=== PATIENT | female | born 1955 | race Caucasian/White ===

== ENCOUNTER → 2020-02-09 15:53 | Outpatient (CLI) | payer OTHER, SELFPAY ==
--- NOTE | ~2020-02-09 | XR_ITS ---
EXAMINATION: XR ankle LT min 3V DATE: 02/09/2020 16:10 INDICATION: Left ankle pain. TECHNIQUE: 4 views of left ankle were obtained. COMPARISON: None. FINDINGS: Bone alignment is normal. There are small fragments of heterotopic ossification distal to m edial and lateral malleoli. There is mild midfoot osteoarthritis. There are enthesophytes at the post erior and plantar aspects of calcaneal tuberosity. Ankle soft tissue swelling is noted. IMPRESSION: 1. Small fragments of heterotopic ossification distal to medial and lateral malleoli which may be acu te avulsion fractures or findings from old injuries. Reviewed, dictated and finalized at location B. IMPRESSION: 1. Small fragments of heterotopic ossification distal to medial and lateral mal leoli which may be acute avulsion fractures or findings from old injuries.
== END ==
PROVIDERS: PCP Internal Medicine; Visit Provider Internal Medicine
DX: M25.572 Pain in left ankle and joints of left foot (principal)
CPT/HCPCS: 73610

== ENCOUNTER → 2020-06-08 15:19 | Outpatient (CLI) | payer OTHER, SELFPAY ==
--- NOTE | ~2020-06-08 | US_ITS ---
EXAMINATION: US thyroid DATE: 06/08/2020 15:48 INDICATION: Nontoxic thyroid nodules. TECHNIQUE: Multiple ultrasound images of the thyroid were obtained. COMPARISON: Ultrasound 06/12/2019 FINDINGS: The right thyroid lobe measures 5.3 x 2.1 x 2.2 cm. The left thyroid lobe measures 6.4 x 2.4 x 2.7 c m. In the left thyroid lobe, there is a 3.4 cm solid, hypoechoic, vbtit-ebbh-swgy nodule with smooth margin without echogenic foci (TI-RADS TR4) that is unchanged from 08/16/2018 when biopsy yielded pat hology. In the left thyroid lobe, there is a 1.1 cm solid, hypoechoic, wseev-dbac-uagw nodule with sm ooth margin without echogenic foci (TR4), stable from 06/12/2019. In the right thyroid lobe, there is a 2.3 cm solid, hypoechoic, hsqjm-mybv-regs nodule with ill-defined margin and macrocalcifications ( TR4) that is stable from 08/16/2018 when biopsy demonstrated benign pathology. In the right thyroid lo be, there is a 9 mm solid, hypoechoic, fbbql-bqec-agpa nodule with lobulated margin without echogenic foci (TR4), stable from 06/12/2019. IMPRESSION: 1. Stable multinodular goiter. Reviewed, dictated and finalized at location B. HAUL CHAIN FEEDER
== END ==
PROVIDERS: PCP Internal Medicine; Visit Provider Otolaryngology
DX: E04.2 Nontoxic multinodular goiter (principal)
CPT/HCPCS: 76536

== ENCOUNTER → 2020-08-30 13:53 | Outpatient (CLI) | payer OTHER, SELFPAY ==
--- NOTE | ~2020-08-30 | MM_ITS ---
EXAMINATION: MM screening reynaldo BI w trey HISTORY: Screening TECHNIQUE: Craniocaudal and mediolateral oblique 3-D tomosynthesis images were obtained and synthetic 2-D images were generated. CAD analysis was submitted and interpreted. COMPARISON: No prior mammogram is available for comparison at this institution. BREAST PARENCHYMAL COMPOSITION: There are scattered areas of fibroglandular density. FINDINGS: There is no evidence of suspicious mass, calcification, or architectural distortion to sugg est malignancy in either breast. There has been no suspicious interval change. IMPRESSION: 1. No mammographic evidence of malignancy. 2. Recommend routine screening mammography in one year. BI-RADS Category 1: Negative Reviewed, dictated and finalized at location A. ROBE SPECIALIST
== END ==
PROVIDERS: PCP Internal Medicine; Visit Provider Obstetrics & Gynecology
DX: Z12.31 Encounter for screening mammogram for malignant neoplasm of breast (principal)
CPT/HCPCS: 77063; 77067

== ENCOUNTER 2020-09-06 05:38 | Emergency (ER) | payer OTHER, SELFPAY ==
--- NOTE | ~2020-09-06 | XR_ITS ---
EXAMINATION: XR wrist LT min 3V DATE: 09/06/2020 06:06 INDICATION: Left wrist pain TECHNIQUE: Posteroanterior, ulnar deviation, oblique, and lateral views of the left wrist were obtain ed. COMPARISON: None available FINDINGS: There is a transverse lucency in the mid scaphoid. No additional acute osseous abnormality is identified. Mild osteoarthritis is noted at the triscaphe and first carpometacarpal joints. There is dorsal soft tissue swelling of the wrist overlying the carpals. IMPRESSION: 1. Mid scaphoid fracture. Reviewed, dictated and finalized at location A. ENTATION SPECIALIST IMPRESSION: 1. Mid scaphoid fracture.
[2020-09-06 05:43] VITALS: BP 149/102; PULSE 82; RESP 19; TEMP 36.7; O2SAT 100
--- NOTE | 2020-09-06 06:11 | ED.UPPEXIN ---
HPI - Extremity Injury (Upper) General Chief Complaint: Extremity Injury, Upper Stated Complaint: fall, left wrist pain Time Seen by Provider: 09/06/20 05:42 History of Present Illness HPI narrative: Patient is a 64-year-old female who presents ER with left wrist pain. Patient was working her garden when she got her foot stuck on a shovel and fell backwards driving her hand and wrist into the ground. She has been icing and resting the rest but has had persistent pain and discomfort upon waking today. She is able to perform range of motion at the wrist but has pain over the dorsal radial aspect of the wrist. Related Data Allergies Allergy/AdvReac Type Severity Reaction Status Date / Time Penicillins Allergy Mild rash Verified 09/06/20 05:42 Review of Systems Musculoskeletal: Musculoskeletal: Reports arthralgias, Reports joint swelling and Denies muscle cramps Neurologic: Denies focal weakness and Denies numbness PMFSH Past Medical History Medical History (Updated 09/06/20 @ 06:25 by Wilbert Saab MD) Benign paroxysmal positional vertigo of right ear Other and unspecified hyperlipidemia Paroxysmal atrial fibrillation Surgical History Surgical History (Updated 09/06/20 @ 06:15 by Wilbert Saab MD) H/O partial thyroidectomy Family History Family History Mother Cerebrovascular accident Other Diabetes mellitus Family history of arthritis Social History Social History Smoking status: Never smoker Second hand tobacco smoke exposure: No Alcohol intake: current Drinks per week: 10 Substance use: never Substance use type: does not use Gender identity (if verbalized by the patient): Female Exam Narrative: Exam Narrative: GENERAL: Well-appearing, well-nourished, and in no acute distress. HEAD: Normocephalic, atraumatic. EXTREMITIES: Focused exam of the left wrist reveals swelling over the dorsal aspect of the wrist and the radius without anatomical snuffbox tenderness. Range of motion is preserved. Normal sensation. Normal radial pulses and cap refill. SKIN: Warm, dry, no rash. NEURO: Alert and oriented x3. PSYCH: Normal mood and affect. Course Vital Signs Vital signs: Vital Signs Temperature 98.0 F 09/06/20 05:43 Pulse Rate 82 09/06/20 05:43 Respiratory Rate 19 09/06/20 05:43 Blood Pressure 149/102 H 09/06/20 05:43 Pulse Oximetry 100 09/06/20 05:43 Temperature 98.0 F 09/06/20 05:43 Pulse Rate 82 09/06/20 05:43 Respiratory Rate 19 09/06/20 05:43 Blood Pressure 149/102 H 09/06/20 05:43 Pulse Oximetry 100 09/06/20 05:43 MDM - Extremity Injury (Upper) Imaging Data My impression: X-ray left wrist: No acute traumatic injury. Discharge Plan Discharge Clinical Impression: Left wrist sprain Patient Disposition: Home, Self-Care Condition: Stable Instructions: Wrist Sprain (ED) Additional Instructions: Return the ER if you have new injury, you have new numbness or tingling in your hand, or you have additional concerns. Purchase a cock-up wrist splint from [employer] or [employer] to help with immobilization and decrease your pain. Prescriptions: No Action lovastatin 20 mg tablet 20 mg PO DAILY Qty: 90 RF: 3 Follow-up/Referrals: Trey Prather MD [Primary Care Provider] - 1 Week
== END 2020-09-06 06:45 | disposition home or self-care (01) ==
PROVIDERS: Emergency Provider Emergency Medicine; PCP Internal Medicine
DX: S63.502A Unspecified sprain of left wrist, initial encounter (principal); I48.0 Paroxysmal atrial fibrillation; E78.5 Hyperlipidemia, unspecified; E89.0 Postprocedural hypothyroidism; W18.09XA Striking against other object with subsequent fall, initial encounter
CPT/HCPCS: 73110; 99283

== ENCOUNTER 2021-02-15 16:33 | Outpatient (CLI) | payer OTHER, SELFPAY ==
--- NOTE | ~2021-02-15 | US_ITS ---
US venous doppler [facility] DATE: 02/15/2021 17:06 INDICATION: Left leg pain TECHNIQUE: Real-time and color flow imaging, Doppler analysis COMPARISON: None FINDINGS: The greater saphenous vein is patent. There is spontaneous and phasic flow and normal augme ntation and color flow signal and normal compression of the veins of the left leg. IMPRESSION: No evidence of deep venous thrombosis of left leg Reviewed, dictated and finalized at Location A. Reviewed, dictated and finalized at location A.
== END 2021-02-15 16:34 | disposition home or self-care (01) ==
LOC: ANHIMG 16:38
PROVIDERS: PCP Internal Medicine; Visit Provider Internal Medicine
DX: M79.662 Pain in left lower leg (principal)
CPT/HCPCS: 93971

== ENCOUNTER → 2021-03-10 15:23 | Outpatient (CLI) | payer OTHER, SELFPAY ==
--- NOTE | ~2021-03-10 | XR_ITS ---
XR knee LT 3V 03/10/2021 16:18 Indication: Left knee pain Procedure: 3 views left knee Comparison: No prior studies for comparison. Findings: No acute fracture, subluxation or dislocation. No significant joint effusion. Mild osteoart hritis of the left knee. Impression: 1: Mild osteoarthritis of the left knee. Reviewed, dictated and finalized at location A. Impression: 1: Mild osteoarthritis of the left knee.
== END ==
PROVIDERS: PCP Internal Medicine; Visit Provider Internal Medicine
DX: M17.12 Unilateral primary osteoarthritis, left knee (principal)
CPT/HCPCS: 73562

== ENCOUNTER → 2021-07-09 09:00 | Outpatient (CLI) | payer OTHER, SELFPAY ==
--- NOTE | ~2021-07-09 | MR_ITS ---
EXAMINATION: MR knee LT wo con DATE: 07/09/2021 10:02 INDICATION: Left knee pain. TECHNIQUE: Magnetic resonance imaging (MRI) of the left knee was performed without intravenous contra st. Sequences included axial PD-weighted FS FSE, coronal PD-weighted FSE and PD-weighted FS FSE, sagi ttal PD-weighted FSE, and sagittal T2-weighted FS FSE. COMPARISON: Left knee radiographs 03/10/2021 FINDINGS: Medial compartment: There is a complex tear of posterior horn of medial meniscus. There is extensive partial thickness ca rtilage loss of femoral condyle. There is full-thickness cartilage loss of femoral condyle involving the central and posterior articular surface. There is partial-thickness cartilage loss of tibial cond yle, deep at the central articular surface. Osteophytes are noted. Lateral compartment: Lateral meniscus is normal. There is partial-thickness cartilage loss of tibial condyle, deep at the lateral and central articular surface. There is partial-thickness cartilage loss of femoral condyle, deep at the central and lateral articular surface. Osteophytes are noted. Patellofemoral compartment: There is partial-thickness cartilage loss of patella. There is full-thickness cartilage loss of lucero lar medial facet with mild subchondral edema-like marrow signal intensity. There is partial-thickness cartilage loss of trochlea, deep at the central and lateral trochlea with mild subchondral edema-lik e marrow signal intensity. Osteophytes are noted. Ligaments and tendons: The anterior and posterior cruciate ligaments are normal. There are changes of prior sprains of media l collateral ligament and fibular collateral ligament characterized by thickening and increased signa l intensity. There is mild patellar tendinopathy. Fluid: There is a small knee joint effusion. There is trace fluid in a Rendon's cyst. There is mild superfici al infrapatellar bursitis. IMPRESSION: 1. Severe chondrosis of medial and patellofemoral compartments and moderate chondrosis of lateral com partment. 2. Tear of medial meniscus. 3. Small knee joint effusion. Reviewed, dictated and finalized at location B. OMES SPECIALIST IMPRESSION: 1. Severe chondrosis of medial and patellofemoral compartments and moderate cho ndrosis of lateral compartment. 2. Tear of medial meniscus. 3. Small knee joint effusion.
== END ==
PROVIDERS: PCP Internal Medicine; Visit Provider Orthopaedic Surgery
DX: M25.462 Effusion, left knee (principal); S83.242A Other tear of medial meniscus, current injury, left knee, initial encounter; X58.XXXA Exposure to other specified factors, initial encounter
CPT/HCPCS: 73721

== ENCOUNTER 2021-08-29 01:32 | Day surgery (SDC) | payer OTHER, SELFPAY ==
[2021-08-23 12:14] VITALS: BMI 25.7
--- NOTE | 2021-08-23 12:55 | PC.NURSE ---
Report to the Outpatient Waiting Room, entrance under the green pavilion located off [facility], at time 1030 on date 08/29/21. OR Time: 1230. - You and your visitor will be asked a series of questions to screen for COVID 19 for your protection. - A mask is required within the hospital. One visitor will be allowed to accompany the patient into the hospital. Patients visitor will be instructed to remain with patient at all times or leave the building. We will allow the visitor to come back to the postoperative area when patient is ready. Preoperative COVID Testing Requirements: No COVID Test needed if: (proof is required; if not received patient will have Rapid Test prior to entry) - Patient has received COVID Vaccine at least 14 days prior to procedure date or - Patient has positive COVID test result within last 90 days of surgery date. COVID Test needed if above criteria is not met Patients may have clear liquids (water, carbonated beverages, clear teas, apple juice) until 3 hours prior to surgery with a maximum of 20 ounces. - No food from midnight until time of surgery - Infants may have breast milk until 4 hours before surgery, formula 6 hours prior to surgery. - Children will be allowed to drink immediately following surgery. If applicable, please bring a bottle or sippy cup to assist with drinking. Juice, water, soda, and popsicles are readily available. For infants on formula, please bring formula the day of surgery. Pacifiers are allowed. Take the following medications with a SIP of water the morning of surgery: NONE Medications to discontinue per physician: VITAMINS/SUPPLEMENTS Date to take last dose: 08/25/21 Please no make-up, nail central african, hairspray, perfume, deodorant, or body powder the day of surgery. No jewelry (including any body piercings) or valuables the day of surgery, leave them at home. Please take a shower or bath the night before, or the morning of, surgery with an antibacterial soap. Wear comfortable, loose fitting clothing. - Jewelry must be removed prior to entering the operating room. Rings and piercings that are not removed may be cut off. - The hospital will not accept responsibility for valuables. - Please leave all valuables, including medications, at home the day of surgery. If you are going home after surgery, a licensed class c driver must drive you home. - NO public transportation without another adult. - We recommend that an adult stay with you for 24 hours following discharge. - We also recommend that you do not drive, make important decision, drink alcoholic beverages, or take any drugs that were not prescribed by your health care provider for at least 24 hours after your discharge time. Follow any additional instructions given to you from your surgeon. Telephone instructions given to MARQUITA VILCHIS and asked if any additional questions and then verbalized understanding. Patient advised to call surgeon office or pre surgery nurse liaison [phone] if any additional questions.
[2021-08-29] VITALS (8 sets, daily range): BP systolic 116–146; BP diastolic 66–86; PULSE 57–71; RESP 10–18; TEMP 36.3; O2SAT 98–100
--- NOTE | 2021-08-29 08:06 | P.PNAN_ITS ---
Anes - Initial Pre Proc Eval Procedure: Operation Date: 08/29/21 12:30 Proposed Procedures p Left Knee Arthroscopy with Medial Meniscectomy - Lito Bahena MD Date/Time: 08/29/21 08:06 Surgeon: Lito Bahena MD Pre Op Diagnosis: left knee medial meniscus tear Patient Data Age: 65 Gender: F Height: 1.74 m Weight: 78.02 kg Allergies Allergy/AdvReac Type Severity Reaction Status Date / Time Penicillins Allergy Mild rash Verified 08/29/21 10:46 Home Medications Medication Instructions Recorded Confirmed Type diltiazem HCl 120 mg 120 mg PO HS cap 03/30/21 08/29/21 History capsule,extended release 24 hr krill oil 350 mg-om-3 90 mg-dha 24 1 cap PO HS 03/30/21 08/29/21 History mg-epa 50 mg-phospholipids capsule aspirin 81 mg tablet,delayed 81 mg PO HS 06/28/21 08/29/21 History release calcium carbonate 500 mg calcium 500 mg PO HS 08/23/21 08/29/21 History (1,250 mg) chewable tablet lovastatin 20 mg PO HS 08/23/21 08/29/21 History multivitamin 1 tablet PO HS 08/23/21 08/29/21 History Patient hx anesthesia problems: none Family hx anesthesia problems: none Results Review: All pre-operative results and documents have been reviewed as part of the pre-operative evaluation. [facility] Past Medical History Medical History Benign paroxysmal positional vertigo of right ear Osteoarthritis of left knee Osteoarthritis of right hip Other and unspecified hyperlipidemia Paroxysmal atrial fibrillation Surgical History Surgical History H/O partial thyroidectomy Family History Family History Mother Cerebrovascular accident Other Diabetes mellitus Family history of arthritis Social History Social History Smoking packs per day: 2 Smoking cigarettes per day: 40.0 Years smoked: 10 Smoking pack-years: 20.00 Smoking status: Former smoker Tobacco type: cigarettes Second hand tobacco smoke exposure: No Smoking end date: 07/02/04 Additional smoking assessment comments: 2 PPD X 10 YRS, THEN 07/05 PPD Alcohol intake: current Drinks per week: 12 Alcohol use details: wine Substance use: never Substance use type: does not use Living arrangements: with family Gender identity (if verbalized by the patient): Female Spiritual care concerns: No Anes - Eval Final PreProcedure Day of Procedure 08/29/21 08:06 Patient weight: overweight Heart: regular rate and rhythm Lungs: clear to auscultation and normal air movement Airway: Mallampati scale class II Neurological: alert and oriented Last oral intake: >/= 8 hours ASA classification: III Emergent: no Anesthetic plan: proceed Anesthesia type and monitoring: general LMA and standard monitoring Results Review: All pre-operative results and documents have been reviewed as part of the pre-operative evaluation. Informed Consent: The patient's anesthetic plan and its attendant risks and benefits were discussed with the patient/family/POA. Questions were solicited and answers provided to the satisfaction of the patient/family/POA.
--- NOTE | 2021-08-29 09:29 | ECG_ITS ---
Measurements Intervals [place] Rate: 65 P: 30 DC: 127 QRS: -21 QRSD: 100 T: -13 QT: 393 QTc: 410 Interpretive Statements SINUS RHYTHM ATRIAL PREMATURE COMPLEX LOW QRS VOLTAGE IN PRECORDIAL LEADS INCOMPLETE RIGHT BUNDLE BRANCH BLOCK T WAVE ABNORMALITY IN INFERIOR LEADS- CONSIDER ISCHEMIA ABNORMAL ECG Electronically Signed On 08-29-2021 12:16:27 CONFERENCE ORGANIZER by Gerard Jones D.O.
--- NOTE | 2021-08-29 11:15 | WPDHPUPDATE1 ---
History and Physical Update Update Date/Time: 08/29/21 11:15 History and Physical has been reviewed, including an updated exam of the patient. She has moderate medial and lateral joint line irritability today as the knee is taken through range of motion and a mild effusion but no warmth or erythema. Risks, benefits, and alternatives have been discussed and questions answered. Patient agrees to proceed with procedure.
[2021-08-29] MEDS: LACTATED RINGERS 1,000 ML 30 ML IV CONT (11:19)
[2021-08-29] MEDS: ACETAMINOPHEN 500 MG TABLET 1000 MG PO (11:20)
[2021-08-29] MEDS: KETOROLAC 15 MG/ML VIAL (*BKC) IV PUSH (11:20)
[2021-08-29] MEDS: ceFAZolin 2 GM/D5W 50 ML 2 GM/50 ML BAG IVPB (11:31)
[2021-08-29] MEDS: TRANEXAMIC ACID 1,000 MG/10 ML AMPUL 1000 MG TOPICAL (12:20)
--- NOTE | 2021-08-29 12:51 | P.OP_ITS ---
Procedure Note - Detailed Date of Procedure 08/29/21 Pre-op Diagnosis left knee medial meniscus tear Post-op Diagnosis other (Left knee medial and lateral meniscal tears with extensive synovitis) Procedure Performed Left knee arthroscopy with partial medial and lateral meniscectomy and extensive synovectomy Surgeon Lito Bahena MD Anesthesia general Description of Procedure The patient was identified and proper site identified and she was taken to the operating room, transferred to the OR table placing her supine taking care to pad the torso and extremities. After general anesthetic induction and intubation, a nonsterile tourniquet was placed high on the left thigh. It was inflated midway through the procedure remaining up for 17 minutes and then released at the end of the procedure. The left lower extremity was positioned, prepped and draped in usual sterile fashion. 10 cc of 1% lidocaine was injected into the subcutaneous tissue in the area of the portals at start of the procedure, and an additional 10 at the end. The portals were established and the arthroscopy was carried out. Tricompartmentally there was grade 2 and three changes noted, some early grade 4 changes noted in the anterior compartment. There was tearing of the posterior horn of the medial meniscus in the midbody an d the anterior horn of the lateral meniscus into the midbody. These areas were debrided back to stable rim with basket forceps and shaver. There was also extensive synovitis noted throughout the knee. The extremity was exsanguinated tourniquet was inflated to 300 millimeters of mercury remaining up for about 17 minutes. Using a shaver and extensive synovectomy was carried out and then the ArthroCare Wand was used for hemostasis. The knee was flushed with a copious amount of arthroscopic fluid and equipment was removed. The knee was injected with 1 gram of tranexamic acid. Portals were closed with three O nylon suture and a sterile dressing was applied. The tourniquet was released. She tolerated the procedure well, was awakened, extubated and taken to recovery area in stable condition. There were no known intraoperative complications. Estimated blood loss was negligible; she received perioperative antibiotics. Estimated Blood Loss 10 Tourniquet Time 17 Drains No Packing No Pathology none sent Complications No immediate complications Condition stable Disposition PACU
[2021-08-29] MEDS: fentaNYL CITRATE INJ (*CRX) 100 MCG/2 ML VIAL 25 MCG IV PUSH ×3 (13:17→13:45)
[2021-08-29] MEDS: oxyCODONE HCL (*CRX) 5 MG TAB IR PO (14:29)
== END 2021-08-29 14:55 | disposition home or self-care (01) ==
PROVIDERS: PCP Internal Medicine; Visit Provider Orthopaedic Surgery
PROC: (CPT 29870; principal; 2021-08-29 12:30)
DX: M23.342 Other meniscus derangements, anterior horn of lateral meniscus, left knee (principal); M23.222 Derangement of posterior horn of medial meniscus due to old tear or injury, left knee; M65.862 Other synovitis and tenosynovitis, left lower leg; I45.10 Unspecified right bundle-branch block; I49.1 Atrial premature depolarization; Z79.82 Long term (current) use of aspirin; M19.90 Unspecified osteoarthritis, unspecified site; E78.5 Hyperlipidemia, unspecified; I48.0 Paroxysmal atrial fibrillation; Z87.891 Personal history of nicotine dependence; M25.462 Effusion, left knee; H81.11 Benign paroxysmal vertigo, right ear
CPT/HCPCS: 29880; 93005; A9270; J0690; J1885; J2001; J2250; J2704; J3010; J7120

== ENCOUNTER → 2021-09-17 09:15 | Outpatient (CLI) | payer OTHER, SELFPAY ==
--- NOTE | ~2021-09-17 | DEXA_ITS ---
Bone Density Report Name: MARQUITA VILCHIS Age: 65 Sex: Female Ethnicity: White Date of : 1955 Indication: postmenopausal; screening for osteoporosis; Referring Provider: Felipe, Rustam Heller Study: Bone densitometry was performed. Exam Date: September 17, 2021 Accession number: [id number] Bone Density: Region BMD T-score Z-score Classification AP Spine (L1-L4) 0.884 -1.5 0.3 Osteopenia Femoral Neck (Left) 0.773 -0.7 0.8 Normal Total Hip (Left) 0.836 -0.9 0.3 Normal Femoral Neck (Right) 0.861 0.1 1.6 Normal Total Hip (Right) 0.848 -0.8 0.4 Normal Total Hip Mean 0.842 -0.9 0.4 Normal World Health Organization criteria for BMD impression classify patients as: Normal (T-score at or above -1.0), Osteopenia (T-score between -1.0 and -2.5), or Osteoporosis (T-score at or below -2.5). 10-year Fracture Risk(1): Major Osteoporotic Fracture 7.5% Hip Fracture 0.4% Reported Risk Factors: [place] (), Neck BMD=0.773, BMI=26.7 (1) FRAX(R) Version 3.08. Fracture probability calculated for an untreated patient. Fracture probability may be lower if the patient has received treatment. Clinical Information Provided by Patient: Has used the following medications: Vitamin D, Calcium Patient maximum height was 68.5 Menopause Age: 53 Does not regularly consume dairy products Onset of menses at age 17 Number of children 2 Impression: The patient has low bone mass, based on the Total Spine T-score. The patient has an estimated ten-year risk of hip fracture of 0.4% and an estimated ten-year risk of major fracture of 7.5%, based on the WHO FRAX algorithm. Discussion: BONE DENSITY IS LOW AT ONE OR MORE SKELETAL SITES. This patient's lowest T-score is low at one or more skeletal sites. It meets the World Health Organization's (WHO) criteria for ?low bone mass? (T-score between -1.0 and -2.5). The patient's 10-year risk of fracture as calculated by FRAX is less than the threshold where pharmacological therapy is recommended by the National Osteoporosis Foundation (NOF). However, all treatment decisions require clinical judgment and consideration of individual patient factors, including patient preferences, comorbidities, previous drug use, risk factors not captured in the FRAX model (e.g., frailty, falls, vitamin D deficiency, increased bone turnover, interval significant decline in bone density) and possible under or overestimation of fracture risk by FRAX. The patient should follow a healthful lifestyle (good nutrition with adequate calcium and vitamin D, and appropriate weight-bearing exercise). Follow-Up: Consider repeating this study in 2 to 3 years to reassess this patient's status, or sooner if there is some new clinical indication. Reported by: LAURIE on 09/17/2021 9:43:00 AM.
--- NOTE | ~2021-09-17 | MM_ITS ---
EXAMINATION: MM screening reynaldo BI w trey HISTORY: Screening mammogram TECHNIQUE: Craniocaudal and mediolateral oblique 3-D tomosynthesis images were obtained and synthetic 2-D images were generated. CAD analysis was submitted and interpreted. COMPARISON: 08/30/2020, 04/03/2007 bilateral screening mammogram examinations BREAST PARENCHYMAL COMPOSITION: There are scattered areas of fibroglandular density. FINDINGS: Stable mild fibroglandular asymmetry. There is no evidence of suspicious mass, calcificatio n, or architectural distortion to suggest malignancy in either breast. There has been no suspicious i nterval change. IMPRESSION: 1. No mammographic evidence of malignancy. 2. Recommend routine screening mammography in one year. BI-RADS Category 2: Benign finding(s). Reviewed, dictated and finalized at location A.
== END ==
PROVIDERS: PCP Obstetrics & Gynecology; Visit Provider Obstetrics & Gynecology
DX: Z12.31 Encounter for screening mammogram for malignant neoplasm of breast (principal); Z78.0 Asymptomatic menopausal state; M85.88 Other specified disorders of bone density and structure, other site
CPT/HCPCS: 77063; 77067; 77080

== ENCOUNTER 2021-10-04 16:15 | Outpatient (RCR) | payer OTHER, SELFPAY ==
--- NOTE | 2021-08-31 08:18 | PTOPEVAL ---
Thank you for referring Fabby Faith to [facility].? The patient is scheduled to be seen for therapy? 2 x/week for 5 weeks. Please review, sign, date and return this plan of care MIKA. I agree with and certify that the following plan of care is medically necessary. Referring Physician Date Attending Provider: Rafy Soria APN Referring Provider: Diagnosis torn meniscus with s/p arthroscopic surgery left knee Onset 08/29/21 Additional Evaluation Detail She has 3 YESSICA without rails and 1 flight to basement no rails and 1 flight to 2nd level with rails. Subjective Information She did not get an AD, but has Query Text:As Reported By Patient/ been furniture walking. She Family reports limitations with walking, steps, ADL's, IADL's. She reports increased pain with attempting to bend left knee. She works in an office. She rides her exercise bike consistently and walks a lot. Pain Assessment Left Knee(s) Reported Pain Level 1 Pain Frequency Acute Lowest Pain Intensity 1 Greatest Pain Intensity 7 Pain Aggravating Factors Bending Lower Extremity Range of Motion Knee Range of Motion Left Knee Flexion Range of Motion - Active 62 Knee Extension Range of Motion - Active -22 Knee Range of Motion Limitations Edema,Muscle Weakness,Pain, Soft Tissue Restriction Lower Extremity Muscle Strength Testing General Lower Extremity Strength Gross Lower Extremity Strength right LE 5/5, except hip abd: 4-/5 Hip Strength Left Hip Flexion Strength 3+ Fair + Hip Extension Strength 4 Good Hip Abduction Strength 3+ Fair + Hip Strength Comments hip ext measured supine Knee Strength Left Knee Flexion Strength 3- Fair - Knee Extension Strength 3- Fair - Ankle Strength Left Ankle Dorsiflexion Strength 5 Normal Extremity Circumference Assessment Circumference Assessment Location Left Body Part Knee Site Descriptor ([place]) lateral knee joint line Circumference (cm) 43 Noninvolved Side Circumference (cm) 41 Circumference Comments superior patella: 43 cm starla Transfer Assessment Chair Transfer Assessment Chair Transfer Assistive Devices None Chair Transfer Destination Ambulatory Sit to Stand Chair Transfer Ability Independent Stand to Sit Chair Transfer Ability Independent Ability to Transfer In/Ou
--- NOTE | 2021-10-04 17:15 | PTOPEVAL ---
Physical Therapy Discharge Summary Thank you for referring Fabby Faith to [facility].? Fabby Acosta has been seen for 6 therapy visits to address LE impairments since her knee surgery. She demonstrates improved limitations with indep with her HEP. She has achieved her therapy goals at this time. See summary below for information of functional changes. Will DC skilled therapy services at this time. Please review, sign, date and return this discharge summary MIKA. I agree with and certify that the following plan of care is medically necessary. Referring Physician Date Attending Provider: Rafy Soria APN Diagnosis torn meniscus with s/p arthroscopic surgery left knee Onset 08/29/21 Subjective Information She is performing some thing Query Text:As Reported By Patient/ of her HEP daily,but not all Family of them. She does feel the leg is stronger. She reports improved knee swelling. She is riding her exercise bike daily. Pain Assessment Left Knee(s) Reported Pain Level 1 Pain Frequency Intermittent Lowest Pain Intensity 0 Greatest Pain Intensity 3 Lower Extremity Range of Motion Left Knee Flexion Range of Motion - Active 125 Knee Extension Range of Motion - Active 0 Lower Extremity Muscle Strength Testing Left Hip Flexion Strength 4+ Good + Hip Extension Strength 4+ Good + Hip Abduction Strength 3+ Fair + Left Knee Flexion Strength 4 Good Knee Extension Strength 5 Normal Special Tests-Lower Extremity Hip Special Tests Trendelenburg Sign Negative Left,Negative Right Hip Special Test Comments SLS: left: 30 sec, right: 30 sec Extremity Circumference Assessment Location Left Body Part Knee Site Descriptor ([place]) lateral knee joint line Circumference (cm) 42 Noninvolved Side Circumference (cm) 41 Circumference Comments superior patella: 43 cm starla inf patella: left: 39 cm, right: 38 cm Balance Assessment 5 Time Sit to Stand Time in Seconds 10 5 Time Sit to Stand Comments = LE WB, proper LE control and position Gait Assessment Gait Pattern No Deviations/Normal 2 Minute Walk Total Distance Walked (feet) 525 2 Minute Walk Gait Speed Score (feet/ 4.37 second) 2 Minute Walk Test Comments no pain changes Stair Climbing Assessment Stair Climbing Assistive Devices None Technique Alternating Steps Stair Climbing Direction Both Up and Down Stair Climbing Comment
== END 2021-10-05 11:04 | disposition home or self-care (01) ==
LOC: ANHPT 16:15
PROVIDERS: PCP Internal Medicine; Visit Provider Nurse Practitioner
DX: Z48.89 Encounter for other specified surgical aftercare (principal)
CPT/HCPCS: 97110; 97112; 97116; 97140; 97162

== ENCOUNTER → 2022-06-10 10:46 | Outpatient (CLI) | payer OTHER, SELFPAY ==
--- NOTE | ~2022-06-10 | US_ITS ---
EXAMINATION: US thyroid DATE: 06/10/2022 11:16 INDICATION: Nontoxic multinodular goiter. TECHNIQUE: Multiple ultrasound images of the thyroid were obtained. COMPARISON: Ultrasound 06/08/2020, 07/18/18 FINDINGS: The right thyroid lobe measures 5.6 x 1.8 x 2.0 cm. The left thyroid lobe measures 5.3 x 2.3 x 2.7 c m. In the right thyroid lobe, there is a 2.6 cm solid, hypoechoic, wider than tall nodule with ill-d efined margin with macrocalcification (TI-RADS TR4), stable from 08/16/18 when biopsy was benign. In t he right thyroid lobe, there is a 10 mm solid, hypoechoic, wider than tall nodule with irregular yanelis in without echogenic foci (TR4), stable from 06/08/20. In the left thyroid lobe, there is a 3.4 cm rubi id, hypoechoic, wider than tall nodule with smooth margin without echogenic foci (TR4), stable from when biopsy was benign. The thyroid demonstrates increased vascularity. IMPRESSION: 1. Stable multinodular goiter, likely not clinically significant. Reviewed, dictated and finalized at location A. CE MANAGER RECEPTIONIST
== END ==
PROVIDERS: PCP Otolaryngology; Visit Provider Otolaryngology
DX: E04.2 Nontoxic multinodular goiter (principal)
CPT/HCPCS: 76536

== ENCOUNTER → 2022-11-18 09:40 | Outpatient (CLI) | payer BC, SELFPAY ==
--- NOTE | ~2022-11-18 | MM_ITS ---
EXAMINATION: MM screening reynaldo BI w trey HISTORY: Screening mammogram, family history of breast cancer in her mother. TECHNIQUE: Craniocaudal and mediolateral oblique 3-D tomosynthesis images were obtained and synthetic 2-D images were generated. CAD analysis was submitted and interpreted. COMPARISON: 09/17/2021, 08/30/2020, 04/03/2007 BREAST PARENCHYMAL COMPOSITION: There are scattered areas of fibroglandular density. FINDINGS: No suspicious mass, calcification, or architectural distortion are identified in either azra ast to suggest malignancy. There has been no suspicious interval change. IMPRESSION: 1. No mammographic evidence of malignancy. 2. Recommend routine screening mammography in one year. BI-RADS Category 1: Negative Reviewed, dictated and finalized at location A.
== END ==
PROVIDERS: PCP Obstetrics & Gynecology; Visit Provider Obstetrics & Gynecology
DX: Z12.31 Encounter for screening mammogram for malignant neoplasm of breast (principal)
CPT/HCPCS: 77063; 77067

== ENCOUNTER 2023-06-07 16:27 | Emergency (ER) | payer BC, SELFPAY ==
--- NOTE | ~2023-06-07 | XR_ITS ---
[[id number] ] INDICATION: Right chest pain after injury TECHNIQUE: Frontal projection of the upper right ribs, frontal projection of the lower right ribs, ob lique projection of all the right ribs, frontal inspiratory chest x-ray for interpretation. FINDINGS: There is a nondisplaced right seventh rib fracture. No pneumothorax. No focal airspace cons olidation. No pleural effusion. Heart size normal. There are no soft tissue abnormality seen. . IMPRESSION: 1: Nondisplaced right seventh rib fracture. Reviewed, dictated and finalized at location L. ISITION PROFESSIONAL
--- NOTE | 2023-06-07 16:39 | ED.GENADULT ---
HPI - General Adult General Chief complaint: Chest Pain Stated complaint: INJURED RIB Source: patient Mode of arrival: ambulatory Limitations: no limitations History of Present Illness HPI narrative: 67 y/o female presented for c/o right rib pain for 5 days. States she hurt the rib after leaning over her car console, states she reached for something and hit the console hard with the rib and felt it compress. Since then she has had pain with certain movements and positions. She is able to tolerate deep breaths, but reports pain at the end of the deep inhale. Denies sob, wheezing, hemoptysis, dizziness or chest pain. Does not like to take anything for pain, states she took Tylenol last night because the pain was more severe, but it did not help. Related Data Home Medications Medication Instructions Recorded Confirmed apixaban 5 mg tablet (Eliquis) 5 mg PO BID 06/07/23 06/07/23 diltiazem HCl 240 mg 240 mg PO DAILY 06/07/23 06/07/23 capsule,extended release 24 hr Allergies Allergy/AdvReac Type Severity Reaction Status Date / Time Penicillins Allergy Mild rash Verified 06/07/23 17:11 Review of Systems Review of Systems: CONSTITUTIONAL: Denies body aches, fever, chills, or sweats. EYES: Denies visual changes, redness, or discharge. ENT: Denies rhinorrhea, congestion, sore throat, or otalgia. CARDIOVASCULAR: Denies chest pain, palpitations, or edema. RESPIRATORY: Denies cough or dyspnea. GASTROINTESTINAL: Denies abdominal pain, nausea, vomiting, or diarrhea. GENITOURINARY: Denies dysuria or hematuria. SKIN: Denies rash, itching, or wounds. MUSCULOSKELETAL:reports right rib pain Denies back pain, joint pain, or myalgia. NEUROLOGIC: Denies headache, numbness, tingling, or weakness. All systems reviewed & are unremarkable except as noted in HPI and below PMFSH Past Medical History Medical History Benign paroxysmal positional vertigo of right ear Osteoarthritis of left knee Osteoarthritis of right hip Other and unspecified hyperlipidemia Paroxysmal atrial fibrillation Surgical History Surgical History H/O partial thyroidectomy History of arthroscopy of left knee Meniscectomy and synovectomy August 29, 2021 Family History Family History Mother Cerebrovascular accident Other Diabetes mellitus Family history of arthritis Social History Social History Smoking packs per day: 2 Smoking cigarettes per day: 40.0 Years smoked: 10 Smoking pack-years: 20.00 Smoking status: Former smoker Tobacco type: cigarettes Second hand tobacco smoke exposure: No Smoking end date: 07/02/04 Additional smoking assessment comments: 2 PPD X 10 YRS, THEN 07/05 PPD Alcohol intake: current Drinks per week: 12 Alcohol use details: wine Substance use: never Substance use type: does not use Living arrangements: with family Occupation/Education: occupation Gender identity (if verbalized by the patient): Female Spiritual care concerns: No Comments At time of signature, I have reviewed and agree with nursing past medical, surgical, social and family history unless otherwise noted. Please see nursing chart for further information. There is no relevant family history pertinent to the presenting complaint Exam Narrative: GENERAL: Well-appearing, and in no acute distress. ENT: Mucous membranes pink and moist. NECK: Normal AROM. Supple. No lymphadenopathy. CHEST: No respiratory distress. Clear to auscultation. Speaks full sentences HEART: Regular rate and rhythm. No murmur appreciated. Normal peripheral pulses. ABDOMEN: Soft, nontender, nondistended, normal active bowel sounds. MUSCULOSKELETAL: Right anterior/lateral rib tenderness at rib 6-7 area; no bruising or apparent deformit
[2023-06-07 16:40] VITALS: BP 123/90; PULSE 74; RESP 16; TEMP 36.8; O2SAT 100
== END 2023-06-07 17:28 | disposition home or self-care (01) ==
PROVIDERS: Emergency Provider Nurse Practitioner Family
DX: S22.31XA Fracture of one rib, right side, initial encounter for closed fracture (principal); W22.8XXA Striking against or struck by other objects, initial encounter; I48.0 Paroxysmal atrial fibrillation; M17.12 Unilateral primary osteoarthritis, left knee; M16.11 Unilateral primary osteoarthritis, right hip; E78.5 Hyperlipidemia, unspecified
CPT/HCPCS: 71101; 99213; G0463

== ENCOUNTER 2023-10-29 12:08 | Outpatient (CLI) | payer MEDICARE, OTHER, SELFPAY ==
--- NOTE | ~2023-10-29 | DEXA_ITS ---
Bone Density Report Name: MARQUITA VILCHIS Age: 68 Sex: Female Ethnicity: White Date of : 1955 Indication: osteopenia; prior fracture; postmenopausal Referring Provider: Felipe, Rustam Heller Study: Bone densitometry was performed. Exam Date: October 29, 2023 Accession number: [id number] Bone Density: Region BMD T-score Z-score Classification AP Spine (L1-L4) 0.819 -2.1 -0.2 Osteopenia Femoral Neck (Left) 0.761 -0.8 0.8 Normal Total Hip (Left) 0.834 -0.9 0.4 Normal Femoral Neck (Right) 0.844 0.0 1.6 Normal Total Hip (Right) 0.853 -0.7 0.6 Normal Total Hip Mean 0.844 -0.8 0.5 Normal World Health Organization criteria for BMD impression classify patients as: Normal (T-score at or above -1.0), Osteopenia (T-score between -1.0 and -2.5), or Osteoporosis (T-score at or below -2.5). Previous Exams: Region Exam Age BMD T-score BMD Change BMD Change Date g/cm2 vs Baseline vs Previous AP Spine(L1-L4) 10/29/2023 68 0.819 -2.1 -0.065* -0.065* 09/17/2021 65 0.884 -1.5 Total Hip(Left) 10/29/2023 68 0.834 -0.9 -0.002 -0.002 09/17/2021 65 0.836 -0.9 Total Hip(Right) 10/29/2023 68 0.853 -0.7 0.005 0.005 09/17/2021 65 0.848 -0.8 *Denotes significance at 95% confidence level, LSC for AP Spine = 0.022 g/cm2, LSC for Total Hip = 0.027 g/cm2 Clinical Information Provided by Patient: Has had a low trauma fracture Patient maximum height was 68.5 Menopause Age: 53 Onset of menses at age 17 Number of children 2 Impression: The patient has low bone mass, based on the Total Spine T-score. The patient has risk factors, including: previous fracture. The BMD for the AP Spine(L1-L4) decreased, changing by -0.065 since the last DXA exam. Discussion: BONE DENSITY IS LOW AT ONE OR MORE SKELETAL SITES. This patient's lowest T-score is low at one or more skeletal sites. It meets the World Health Organization's (WHO) criteria for ?low bone mass? (T-score between -1.0 and -2.5). The patient's 10-year risk of fracture as calculated by FRAX is less than the threshold where pharmacological therapy is recommended by the National Osteoporosis Foundation (NOF). However, all treatment decisions require clinical judgment and consideration of individual patient factors, including patient preferences, comorbidities, previous drug use, risk factors not captured in the FRAX model (e.g., frailty, falls, vitamin D deficiency, increased bone turnover, interval significant decline in bone density) and possible under or overestimation of fracture risk by FRAX.
== END 2023-10-29 12:09 ==
PROVIDERS: PCP Family Medicine; Visit Provider Obstetrics & Gynecology
DX: Z78.0 Asymptomatic menopausal state (principal); M85.88 Other specified disorders of bone density and structure, other site
CPT/HCPCS: 77080

== ENCOUNTER 2023-11-20 10:30 | Outpatient (CLI) | payer MEDICARE, OTHER, SELFPAY ==
--- NOTE | ~2023-11-20 | MM_ITS ---
EXAMINATION: MM screening reynaldo BI w trey HISTORY: Screening TECHNIQUE: Craniocaudal and mediolateral oblique 3-D tomosynthesis images were obtained and synthetic 2-D images were generated. CAD analysis was submitted and interpreted. COMPARISON: Comparison to multiple prior studies sequentially, with oldest reviewed study dated 07/2020. BREAST PARENCHYMAL COMPOSITION: Not dense: There are scattered areas of fibroglandular density. FINDINGS: There is no evidence of suspicious mass, calcification, or architectural distortion to sugg est malignancy in either breast. There has been no suspicious interval change. IMPRESSION: 1. No mammographic evidence of malignancy. 2. Recommend routine screening mammography in one year. BI-RADS Category 1: Negative Reviewed, dictated and finalized at location A.
== END 2023-11-20 10:31 ==
LOC: MICIMG 10:31
PROVIDERS: PCP Family Medicine; Visit Provider Obstetrics & Gynecology
DX: Z12.31 Encounter for screening mammogram for malignant neoplasm of breast (principal)
CPT/HCPCS: 77063; 77067

== ENCOUNTER 2024-12-21 13:01 | Emergency (ER) | payer MEDICARE, OTHER, SELFPAY ==
--- NOTE | ~2024-12-21 | CT_ITS ---
Procedure: CT foot RT wo con Ordering provider: Leny Perez MD History: . c/f occult fx; point Tenderness ecchymosis . Comparison: None. Technique: Thin slice axial CT of the No IV contrast was given. Sagittal and coronal reformatted imag es were also obtained and reviewed. Radiation reduction technique utilized.The dose-length product wa s 449.82 mGy-cm. Findings: BONES: Small bony fragment seen near to the medial and lateral malleoli most likely chronic fracture versus nonunited apophysis.. 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 Osteoarthritic changes of the proximal and distal interphalangeal joints. SOFT TISSUES: Fat stranding on the dorsum of the foot which may indicate cellulitis. Hyperdense areas are also seen laterally which is suggestive of hematomas. IMPRESSION: No definite fractures. Fat stranding with edema in the dorsum of the foot. Hyperdense areas are also seen which is suggestiv e of hematomas seen laterally on the dorsum. Reviewed, dictated and finalized at location A. IMPRESSION: No definite fractures. Fat stranding with edema in the dorsum of the foot. Hyperdense areas are also s een which is suggestive of hematomas seen laterally on the dorsum.
[2024-12-21 13:05] VITALS: BP 132/81; PULSE 68; RESP 15; TEMP 36.7; O2SAT 100
--- NOTE | 2024-12-21 14:28 | ED_ITS ---
HPI - Extremity Injury (Lower) General Chief Complaint: Extremity Injury, Lower Stated Complaint: think broke the trop of my R foot Time Seen by Provider: 12/21/24 13:12 Source: patient Mode of arrival: ambulatory Limitations: no limitations History of Present Illness HPI Narrative: Patient presents with concern that she broke her foot. She and her are currently fostering her 2 1/2 year old grandson. Accidentally dropped one of his toys on her right foot. Has been icing it but still swollen. Has not taken any pain meds. Not on anticoagulation but is on 81mg aspirin. History of afib s/p ablation. Pain 1/10 at rest but worse when touching or bending it. No paresthesias. 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 Related Data Home Medications ?Medication ?Instructions ?Recorded ?Confirmed ?Last Taken ?Type diltiazem HCl 240 mg 240 mg PO DAILY 06/07/23 05/15/24 Unknown History capsule,extended release 24 hr Allergies Allergy/AdvReac Type Severity Reaction Status Date / Time Penicillins Allergy Mild rash Verified 12/21/24 13:07 [facility] Past Medical History Medical History Adult situational stress disorder At low risk for fall Acquired deformity of nail of finger (~10/2023) deformity of the nail bed right middle finger starting around Oct, 2023 after false nails Osteopenia after menopause DEXA scan 10/29/2023 with T-score -2.1 at the spine, -0.9 left hip and -0.8 right hip. Blood type A+ (07/23/23) Breast cancer screening by mammogram normal mammogram 11/18/2022. Normal 11/20/2023. Adenomatous colon polyp Serrated sessile adenoma at the hepatic flexure, 5 mm polyp on 07/23/2020 with recheck in 5 years. BMI 27.0-27.9,adult Overweight (BMI 25.0-29.9) Essential hypertension Mixed hyperlipidemia Cholesterol 221, triglycerides 88, LDL 80, LDL 126 on 05/06/2024. Elevated fasting glucose (07/23/23) glucose 103 on 07/23/2023. Fasting glucose 112 with hemoglobin A1c 5.8 and GFR 82 on 05/06/2024. Osteoarthritis of right hip Osteoarthritis of left knee Leg pain, left Left ankle sprain Sprain of left ankle Arthritis of right sternoclavicular joint Benign paroxysmal positional vertigo of right ear Body mass index (bmi) 39.0-39.9, adult Other and unspecified hyperlipidemia Obesity (BMI 30-39.9) Paroxysmal atrial fibrillation TSH 2.08 on 05/06/2024. Surgical History Surgical History S/P ablation of atrial fibrillation History of arthroscopy of left knee Meniscectomy and synovectomy August 29, 2021 H/O partial thyroidectomy Family History Family History Mother Cerebrovascular accident Breast cancer Uterine cancer Father Heart disease Other Diabetes mellitus Family history of arthritis Social History Social History Smoking packs per day: 2 Smoking cigarettes per day: 40.0 Years smoked: 10 Smoking pack-years: 20.00 Smoking status: Former smoker Tobacco type: cigarettes Second hand tobacco smoke exposure: No Smoking end date: 07/02/04 Additional smoking assessment comments: 2 PPD X 10 YRS, THEN 1/4 PPD Alcohol intake: current Drinks per week: 12 Alcohol use details: wine, whiskey, beer Substance use: never Substance use type: does not use Current Housing: Decline to Answer Concerned About Future Housing: Decline to Answer Difficulty Paying Gas/Electric Bills: Decline to Answer Difficulty Paying for Meds: Decline to Answer Currently Unemployed: Decline to Answer Education: Decline to Answer Difficulty w/ Childcare or Family Care: Decline to Answer Living arrangements: with family Additional living arrangements comments: and 2.5 yo grandson (whom fostering) Occupation/Education: occupation Gender identity (if verbalized by the patient): Female Spiritual care concerns: No Exam Narrative: GENERAL: Well-appearing, well-nourished, and in no acute distress. HEAD: Normocephalic, atraumatic. EYES: Non injected, non icteric ENT: Nares clear, no rhinorrhea or epistaxis. Gross auditory acuity intact. NECK: Supple. No meningismus. CHEST: Speaking in full sentences. No respiratory distress. HEART: Regular rate and rhythm. . ABDOMEN: Soft, nondistended. No rigidity or guarding. Not peritoneal EXTREMITIES: Normal range of motion - demonstrates ROM at R ankle and able to bend toes. Significant ecchymosis across dorsum of R mid foot, particularly lateral aspect with associated swelling. Tenderness to palpation at this area. Strong DP pulse in R foot. SKIN: Warm, dry. Ecchymotic but skin intact. NEURO: No focal deficits. Alert and oriented. Answering questions. Following commands. Normal speech without aphasia or dysarthria. PSYCH: Normal mood and affect. Course Vital Signs Vital signs: Vital Signs Temperature 98.0 F 12/21/24 13:05 Pulse Rate 68 12/21/24 13:05 Respiratory Rate 15 12/21/24 13:05 Blood Pressure 132/81 12/21/24 13:05 Pulse Oximetry 100 12/21/24 13:05 Oxygen Delivery Room Air 12/21/24 13:05 Temperature 98.0 F 12/21/24 13:05 Pulse Rate 63 12/21/24 14:45 Respiratory Rate 20 12/21/24 14:45 Blood Pressure 132/94 H 12/21/24 14:45 Pulse Oximetry 100 12/21/24 14:45 Oxygen Delivery Room Air 12/21/24 13:05 MDM - Extremity Injury (Lower) MDM Narrative Medical decision making narrative: Exceedingly pleasant 69yo female presents with concern for broken foot. Fostering 2.5 yo grandson and one of his toys was accidentally dropped on her foot. There has been pain and swelling. She has been icing it but no pain meds. In the emergency department they are afebrile with vital signs within normal limits. Plain film negative. Given degree of ecchymosis and tenderness to palpation, there is enough concern for occult fracture that will proceed with CT imaging, especially because I believe patient is limited in her ability to go home and trial conservative management and return if issues persist due to social issues and responsibilities at home caring for her who is in poor health and caring for a child, therefore limiting her time. CT also negative. Discussed the importance of rest, ice, compression and elevation. Encouraged pain control and discussed expected time course/progression of improvement. Otherwise stable for discharge. Differential Diagnosis Differential diagnosis: Likely other (ecchymosis, fracture/dislocation (considered Calderón, considered [place] Franc); considered occult fracture; bony contusion) Imaging Data Attestation: I personally reviewed and interpreted this imaging study as follows: My impression: No definitive fracture seen on my independent interpretation of Xray; No significant wideneing of spaces between metatarsals Radiologist's impression: Impressions Foot X-Ray 12/21/24 13:23 Impression: Unremarkable right foot radiographs. IMPRESSION: No definite fractures. Fat stranding with edema in the dorsum of the foot. Hyperdense areas are also seen which is suggestive of hematomas seen laterally on the dorsum. Discharge Plan Discharge Clinical Impression: Contusion of foot, right, Traumatic ecchymosis of right foot Patient Disposition: Home Condition: Stable Instructions: Antibiotic Form, Foot Contusion (ED), Ecchymosis (ED) Additional Instructions: No broken bones seen on the CT scan. As we discussed, the main stays treatment are R-I-C-E (rest, ice, compression, elevation). Follow-up with primary care physician as needed if not improving over the next 3-5 days. Return to the emergency department with any new, worsening, or unmanaged symptoms. Acetaminophen/Tylenol (maximum 4000 mg per day) is safe to take with NSAIDs (ibuprofen/Motrin) for pain relief. Patient Language: Azeri Prescriptions: New ibuprofen 600 mg tablet 600 mg PO TID PRN (Reason: pain) Qty: 30 0RF acetaminophen 500 mg capsule 1,000 mg PO Q6H PRN (Reason: pain) Qty: 30 0RF No Action diltiazem HCl 240 mg capsule,extended release 24hr 240 mg PO DAILY escitalopram oxalate [Lexapro] 10 mg tablet 10 mg PO DAILY Qty: 30 11RF lovastatin 10 mg tablet 10 mg PO DAILY Qty: 90 3RF Follow-up/Referrals: Samuel Murphy MD [Primary Care Provider] - Time of Disposition: 16:45
[2024-12-21 14:45] VITALS: BP 132/94; PULSE 63; RESP 20; O2SAT 100
== END 2024-12-21 17:06 | disposition home or self-care (01) ==
PROVIDERS: Emergency Provider Student in an Organized Health Care Education/Training Program; PCP Family Medicine
DX: S90.31XA Contusion of right foot, initial encounter (principal); W22.8XXA Striking against or struck by other objects, initial encounter; I10 Essential (primary) hypertension; E78.2 Mixed hyperlipidemia; I48.91 Unspecified atrial fibrillation; Z87.891 Personal history of nicotine dependence
CPT/HCPCS: 73630; 73700; 99283

== ENCOUNTER 2024-12-23 11:21 | Outpatient (CLI) | payer MEDICARE, OTHER, SELFPAY ==
--- NOTE | ~2024-12-23 | MM_ITS ---
EXAMINATION: MM screening reynaldo BI w trey HISTORY: Screening mammogram TECHNIQUE: Craniocaudal and mediolateral oblique 3-D tomosynthesis images were obtained and synthetic 2-D images were generated. CAD analysis was submitted and interpreted. COMPARISON: 11/20/2023, 11/18/2022, 09/17/2021 BREAST PARENCHYMAL COMPOSITION:Not Dense. There are scattered areas of fibroglandular density. FINDINGS: No suspicious mass, calcification, or architectural distortion are identified in either azra ast to suggest malignancy. There has been no suspicious interval change. IMPRESSION: No mammographic evidence of malignancy. Recommend routine screening mammography in one year. BI-RADS Category 1: Negative Reviewed, dictated and finalized at location .
== END 2024-12-23 11:22 | disposition home or self-care (01) ==
LOC: MICIMG 11:22
PROVIDERS: PCP Family Medicine; Visit Provider Family Medicine
DX: Z12.31 Encounter for screening mammogram for malignant neoplasm of breast (principal)
CPT/HCPCS: 77063; 77067

== ENCOUNTER 2025-04-22 09:51 | Outpatient (CLI) | payer MEDICARE, OTHER, SELFPAY ==
--- OUTSIDE RECORDS SUMMARY | 2025-03-25 08:07 | XMS_ITS | Clinical Summary ---
Author Organization [facility] Address [address] [place] [address] Care Team Providers Care Ophthalmic Tech Name Role Phone Unavailable Primary Care Provider Unavailabl e Allergies Active Allergy Reactions Criticality Noted Date Comments Penicillins Rash Low 09/23/2012 Medications aspirin (ECOTRIN EC) 81 mg Tablet, Delayed Release (E.C.) Take 81 mg by mouth daily. Active lovastatin (MEVACOR) 10 mg tablet TAKE 1 TABLET(10 MG) BY MOUTH DAILY 90 Tablet 2 06/18/2024 Active diltiaZEM (CARDIZEM CD) 240 mg Controlled Delivery 24 hour capsule Take 1 Capsule (240 mg) by mouth daily. 90 Capsule 2 07/24/2024 Active ergocalciferol (VITAMIN D2) 50,000 unit capsule Take 50,000 Units by mouth every 7 days. 06/19/2024 Active Active Problems Patient Care Coordination No te Formatting of this note migh t be different from the original. Rafy Tatum MD- [facility] ( [place]) Problem Noted Date Diagnosed Date Supraventricular tachycardia 08/18/2020 Elevated blood pressure read ing without diagnosis of hypertension 08/18/2020 Hx of adenomatous polyp of colon 08/01/2020 Palpitations 07/14/2020 Elevated blood pressure reading 07/14/2020 PAF (paroxysmal atrial fibrillation) 04/22/2014 Hyperlipidemia LDL goal <130 04/22/2014 Encounters Date Type Department Care Team Description 03/17/2025 External Device Data STL ABSTRACTION Provider, Abstract 03/10/2025 External Device Data STL ABSTRACTION Provider, Abstract 02/04/2025 External Device Data ST[facility] ABSTRACTION Provider, Abstract 02/03/2025 External Device Data STL ABSTRACTION Provider, Abstract 01/14/2025 External Device Data STL ABSTRACTION Provider, Abstract 01/14/2025 External Device Data STL ABSTRACTION Provider, Abstract 01/13/2025 External Device Data STL ABSTRACTION Provider, Abstract from Last 3 Months Family History Medical History Relation Name Comments Stroke Mother Colon Cancer Neg Hx Relation Name Status Comments Mother Social History Tobacco Use Types Packs/Day Years Used Date Smoking Tobacco: Former Smokeless Tobacco: Never Tobacco Cessation:Counseling Given: Not Answered Alcohol Use Standard Drinks/Week Comments Yes 7 (1 standard drink = 0.6 oz pur e alcohol) Feeling Safe Answer Date Recorded Are you in a relationship wi th someone who hurts you emotionally and/or physically? Unable to obtain 07/23/2023 Food Insecurity Answer Date Recorded Social/Environmental Concerns No concerns Transportation Needs Answer Date Record ed Social/Environmental Concerns No concerns Housing Stability Answer Date Recorded Social/Environmental Concerns No concerns Utility Needs Answer Date Recorded Social/Environmental Concerns No concerns Comments No Sex and Gender Information Value Date Recorded Sex Assigned at Female 04/30/2024 12:13 PM CDT Legal Sex Female 2:13 PM UPHOLSTERY ESTIMATOR Gender Identity Female 04/30/2024 12:13 PM CDT Sexual Orientation Straight 04/30/2024 12 :13 PM CDT Occupation Industry Job Start Date Job End Date Not on file Not on file Not on file Not on file Last Filed Vital Signs Vital Sign Reading Time Taken Comments Blood Pressure 128/80 09/02/2024 9:22 AM UPHOLSTERY ESTIMATOR Pulse 66 09/02/2024 9:22 AM UPHOLSTERY ESTIMATOR Temperature 36.2 C (97.2 F) 07/23/2023 5:33 PM UPHOLSTERY ESTIMATOR Respiratory Rate 16 07/23/2023 7:00 PM UPHOLSTERY ESTIMATOR Oxygen Saturation 99% 09/02/2024 9:22 AM UPHOLSTERY ESTIMATOR Inhaled Oxygen Concentration - - Weight 83.9 kg (185 lb) 09/02/2024 9:22 AM UPHOLSTERY ESTIMATOR Height 172.7 cm (5' 8) 09/02/2024 9:22 AM UPHOLSTERY ESTIMATOR Body Mass Index 28.13 09/02/2024 9:22 AM UPHOLSTERY ESTIMATOR Plan of Treatment Upcoming Encounters Date Type Department Care Team (Late st Contact Info) Description 05/13/2025 10:30 AM UPHOLSTERY ESTIMATOR Office Visit [facility] - [facility] [address] [place] [address] Rafy Tatum MD [address] [place] [address] 09/03/2025 9:30 AM UPHOLSTERY ESTIMATOR Office Visit [facility] AT [facility] [address] [address] [place] [address] Jesus Gomez DNP [address] [place] [address] Health Maintenance Due Date Last Done Comments Pre-Diabetes and Diabetes Screening 1955 DTAP/TDAP/TD VACCINES (1 - Tdap) 10/09/1975 FIT-DNA Q 3 years 2001 FIT/FOBT Q 1 year 2001 Flex Sig/CT Colonography Q 5 years 2001 PNEUMOCOCCAL VACCINE 50+ YEA RS (1 of 1 - PCV) 2006 ZOSTER VACCINE (1 of 2) 2006 INFLUENZA VACCINE (#1) 2025 COLORECTAL SCREENING 07/23/2025 07/23/2020, 07/23/2020, 01/11/2015, Additional history exists Colorectal Cancer Screening 07/23/2025 BREAST CANCER SCREENING 12/23/2025 12/24/19 25, 12/23/2024, 11/20/2023, Additional history exists OSTEOPOROSIS SCREENING 10/28/2028 , 10/29/2023, 10/29/2023 RSV VACCINE (60+ or ) (1 - 1-dose 75+ series) 10/09/2031 Medical Devices Implanted Type Area Double End Sewer Device Identifier Shelf Expiration Date Model / Serial / Lot Dev Vasc Closure Vascade 5fr [id number] - [id number] Implanted:Qty : 1 on 07/23/2023 at [facility] Closure Device Right: Groin [employer] 03/07/2025 [id number] -[id number] / / [id number] Dev Vns Vasc Clsr Vascade Mvp St [id number] - [id number] Implanted:Qty : 1 on 07/23/2023 at [facility] Closure Device Right: Groin [employer] 04/25/2025 800-612C- 10U / / [id number] Dev Vns Vasc Clsr Vascade Mvp St [id number] - [id number] Implanted:Qty : 1 on 07/23/2023 at [facility] Closure Device Right: Groin [employer] 04/12/2025 800-612C- 10U / / [id number] Dev Vns Vasc Clsr Vascade Mvp St [id number] - [id number] Implanted:Qty : 1 on 07/23/2023 at [facility] Closure Device Left: Groin [employer] 04/12/2025 800-612C- 10U / / [id number] Dev Vns Vasc Clsr Vascade Mvp St [id number] - [id number] Implanted:Qty : 1 on 07/23/2023 at [facility] Closure Device Left: Groin [employer] 04/12/2025 800-612C- 10U / / [id number] Procedures Procedure Name Priority Date/Time Associated Diagnosis Comments COLONOSCOPY REPORT 07/23/2020 11 :43 AM UPHOLSTERY ESTIMATOR from Last 3 Months or Most Recently Relevant to Health Maintenance Results * COLONOSCOPY REPORT (07/23/2020 11:43 AM UPHOLSTERY ESTIMATOR) Narrative Procedure Note River Herman MD - 07/23/2020 11:42 AM CST [facility] Endoscopy Patient Name: Marquita Faith Procedure Date: 07/23/2020 Date of : 1955 Admit Type: Outpatient Age: 64 Attending MD: River Herman MD Procedure: Colonoscopy Indications: Positive Cologuard test. Brother with a history of advanced colon polyp. Hyperplastic colon polyp 2012. Negative exam 2014. Providers: River Herman MD Referring MD: Trey Prather MD Medicines: Propofol per Anesthesia Procedure: Informed consent was obtained for the procedure, including moderate sedation after risks were discussed. Based on the pre-procedure assessment, including review of the patient's medical history, medications, allergies, and review of systems, the patient was deemed to be an appropriate candidate for sedation. A timeout was performed. Continuous ECG monitoring, pulse oximetry, blood pressure monitoring, and direct observation were performed. The Colonoscope was introduced through the anus and advanced to the terminal ileum, with identification of the appendiceal orifice and IC valve. The colonoscopy was performed without difficulty. The patient tolerated the procedure well. The quality of the bowel preparation was good. At completion of the exam, the scope was advanced to the cecum and all residual air was removed. Estimated Blood Loss: Estimated blood loss: none. Findings: A 5 mm polyp was found in the hepatic flexure. The polyp was sessile. The polyp was removed with a cold snare. Resection and retrieval were complete. A few small-mouthed diverticula were found in the sigmoid colon. Internal hemorrhoids were found during retroflexion. The hemorrhoids were small. Complications: No immediate complications. Impression: - One 5 mm polyp at the hepatic flexure, removed with a cold snare. Resected and retrieved. - Diverticulosis in the sigmoid colon. - Internal hemorrhoids. Recommendation: - Await pathology results. River Herman MD 07/23/2020 11:41:40 AM This report has been signed electronically. Number of Addenda: 0 Procedure Date: 07/23/2020 10:54:02 AM [id number] [address] River Herman MD GI PROCEDURE ORDERABLES Final Re sult from Last 3 Months or Most Recently Relevant to Health Maintenance Insurance MEDICARE PART A AND B [employer] [facility] Advance Directives For more information, please contact: [phone] * Full Code (Latest Code Status on File) Date Activated Date Inactivated Comments 07/23/2023 5:42 PM 07/23/2023 10:12 PM * Full Code Date Activated Date Inactivated Comments 07/23/2023 12:10 PM 07/23/2023 5:42 PM * Full Code Date Activated Date Inactivated Comments 07/23/2020 10:17 AM 07/23/2020 2:36 PM * Full Code Date Activated Date Inactivated Comments 01/11/2015 12:42 PM 01/11/2015 4:44 PM
--- OUTSIDE RECORDS SUMMARY | 2025-03-25 08:07 | XMS_ITS | Clinical Summary ---
Author Organization [facility] [employer] Address [facility] [place] [address] Care Team Providers Care Sub Arc Operator Name Role Phone Trey Prather MD Primary Care Provider Source Comments [facility] [employer],non-owned Affiliates and Associated Physician Practices is amultiple site organization consisting of ambulatory clinics and hospital sitesin [place], [place], [place] and [place]. This disclosure is being madepursuant to the Care Everywhere program and may not contain all information available regarding this patient. Last updated 18.[facility] [employer] Allergies Active Allergy Reactions Criticality Noted Date Comments Penicillins Rash Medium 09/23/2012 Medications * Be aware that medications may not be up to date on this document. Alwaysverify current medications with the patient. dilTIAZem coated beads 24hr (Cardizem CD) 240 MG capsule Take 1 (one) capsule by mouth once daily 03/26/2023 Active vitamin D, ergocalciferol, (Drisdol) 1.25 MG (03570 UT) capsule Take 1 (one) capsule by mouth every 7 days 13 capsule 06/19/2024 Active Active Problems Problem Noted Date Diagnosed Date Osteopenia of spine 07/02/2023 Family History Medical History Relation Name Comments Cancer - Breast Maternal Aunt over 50 Cancer - Breast Mother past 50 Cancer - Uterine Mother Cancer - Breast Paternal Grandmother unde r 50 Relation Name Status Comments Maternal Aunt Mother Paternal Grandmother Social History Tobacco Use Types Packs/Day Years Used Date Smoking Tobacco: Former Smokeless Tobacco: Never Tobacco Cessation:Counseling Given: Not Answered Alcohol Use Standard Drinks/Week Comments Yes 14 (1 standard drink = 0.6 oz pu re alcohol) PHQ-2 Answer Date Recorded Patient Health Questionnaire-2 Score 0 06/16/2024 Comments No Sex and Gender Information Value Date Recorded Sex Assigned at Not on file Legal Sex Female 6:14 AM ASSOCIATE BRAND MANAGER Gender Identity Not on file Sexual Orientation Not on file Last Filed Vital Signs Vital Sign Reading Time Taken Comments Blood Pressure 122/78 06/17/2024 10:18 AM ASSOCIATE BRAND MANAGER Pulse - - Temperature - - Respiratory Rate - - Oxygen Saturation - - Inhaled Oxygen Concentration - - Weight 83 kg (183 lb) 06/17/2024 10:18 AM ASSOCIATE BRAND MANAGER Height 173 cm (5' 8.11) 06/17/2024 10:18 AM ASSOCIATE BRAND MANAGER Body Mass Index 27.74 06/17/2024 10:18 AM ASSOCIATE BRAND MANAGER Plan of Treatment Health Maintenance Due Date Last Done Comments COLOGUARD (AGES 45-75) - COLON CA SCREENING 1955 COLON MONITORING 1955 COLONOSCOPY - COLON CA SCREENING 1956 CT COLONOGRAPHY - COLON CA SCREENING 1955 Colorectal Cancer Screening 1955 FIT - COLON CA SCREENING 1955 FLEX SIG - COLON CA SCREENING 1955 LIPID TESTING 1955 MEDICARE AWV 12 MONTHS 1955 HEPATITIS C SCREENING 10/04/1974 DTAP/TDAP/TD VACCINES (1 - Tdap) 10/09/1975 PNEUMOCOCCAL VACCINE 50+ (1 of 1 - PCV) 2006 ZOSTER VACCINE (1 of 2) 2006 SCREENING FOR DIABETES 04/05/2017 DEPRESSION SCREENING 07/02/2024 06/17/2024, 05/28/2023, 07/04/2021 COVID-19 VACCINE (3 - season) 2025 10/17/2020, 09/24/2020 INFLUENZA VACCINE (#1) 2025 , 05/13/2021, 05/18/2019 MAMMOGRAM 11/19/2025 11/20/2023, 10/31, 09/17/2021, Additional history exists Respiratory Syncytial Virus (RSV) Vaccine Pt: or over 60 yrs (1 - 1-dose 75+ series) 10/09/2031 BONE DENSITY TESTING Completed 10/29/2023 HEPATITIS B VACCINE Aged Out No longe r eligible based on patient's age to complete this topic HIB VACCINE Aged Out No longer eligi ble based on patient's age to complete this topic HPV VACCINE Aged Out No longer eligi ble based on patient's age to complete this topic MENINGOCOCCAL (Group B) VACCINE SHARED DECISION-MAKING Aged Out No longer eligible based on patient's age to complete this topic MENINGOCOCCAL GROUPS A/C/Y/W VACCINE Aged Out No longer eligible based on patient's age to complete this topic Procedures Procedure Name Priority Date/Time Associated Diagnosis Comments MAMMO BILAT SCREENING Routine 11/20/2023 Well woman exam DEXA BONE DENSITY AXIAL SKELETON Routine 10/29/19 24 Well woman exam from Last 3 Months or Most Recently Relevant to Health Maintenance Results * MAMMO BILAT SCREENING (11/20/2023) Anatomical Region Laterality Modality Breast Bilateral Mammography 11/20/2023 us Rustam Wang MD MAMMO ORDERABLES Final Resu lt * DEXA BONE DENSITY AXIAL SKELETON (10/29/2023) Anatomical Region Laterality Modality Other 10/29/2023 us Rustam Wang MD DEXA ORDERABLES Final Resul t from Last 3 Months or Most Recently Relevant to Health Maintenance Insurance [place]IC[place] [address] Care Teams Sub Arc Operator Relationship Specialty Start Date End Date Trey Prather MD [address] [place] [address] PCP - General Internal Medicine 04/05/17
--- NOTE | 2025-05-14 11:54 | P.SLEEP_ITS ---
Sleep Study Date of Study: 04/22/25 Ordering Provider: Milton Chavis MD Interpreting Physician: Alice Arreola MD Sleep Study Type: Polysomnogram Height: 1.75 m Weight: 81.193 kg Body Mass Index: 26.4 Neck Circumference (inches): 14 Mather: 1 Reason for Sleep Study Loud snoring reported to her by her ; her ENT reports mouth breathing, restless sleep, non restorative sleep, daytime fatigue and excessive movements of the extremities and body during sleep. Sleep History Fabby Faith is a 69-year-old woman who has a history of loud snoring as well as mouth breathing, restless sleep, non restorative sleep, daytime fatigue and excessive movements of the extremities per her ENT physician. She never awakens from sleep short of breath. She never wakes at night with heartburn, belching or coughing.??She snores loudly and occasionally loudly enough that others complain about it. She frequently has trouble sleeping when she has a cold. She never wakes up gasping for breath during the night. She ne isatu has breathing problems at night. She never sweats excessively at night. She occasionally notices her heart pounding or beating irregularly during the night. She neverfalls asleep during the day. She never falls asleep involuntarily, never falls asleep while driving. She never experiences loss of muscle tone with strong emotion. She never feels paralyzed on waking or falling asleep. She rar joan experiences vivid dreams upon waking or falling asleep. She never feels afraid of going to sleep. She rarely has nightmares. She frequently recalls her dreams. She rarely has thoughts racing through her mind. She rarely feels sad or depressed. She rarely feels anxiety. She rarely notices parts of her body jerk. She never kicks during the night. She rarely feels crawling or aching feelings in her legs, only on long car rides. She rarely feels leg pain at night, occasional Charley horse. She never has morning jaw pain, and never grinds her teeth at night. She occasionally feels bothered by pain during the day, is occasionally awakened by pain during the night. She rarely wakes up feeling stiff in the morning, rarely wakes feeling sore or achy in the morning. She rarely awakens with pain in her neck, spine, or joints. Normal bedtime is 9:30 p.m., falling asleep within seconds, waking once at night to go to the bathroom. She wakes at 7:30 a.m., reports getting 8 hours of sleep per night. she does not nap. Most of the time she feels good on awakening. Habits:??Tobacco: Never smoker Caffeine: none Alcohol: 2 per day Recreational substances: none [facility] Past Medical History Medical History Pharyngitis Contusion of right foot, sequela (12/21/24) 3 cm hematoma extensor surface right foot over 4th metatarsal with x-ray negative for fracture in ER. BMI 26.0-26.9,adult Adult situational stress disorder At low risk for fall Acquired deformity of nail of finger (~10/2023) deformity of the nail bed right middle finger starting around Oct, 2023 after false nails Osteopenia after menopause DEXA scan 10/29/2023 with T-score -2.1 at the spine, -0.9 left hip and -0.8 right hip. Blood type A+ (07/23/23) Breast cancer screening by mammogram normal mammogram 11/18/2022. Normal 11/20/2023. normal 12/23/2024. Adenomatous colon polyp Serrated sessile adenoma at the hepatic flexure, 5 mm polyp on 07/23/2020 with recheck in 5 years. BMI 27.0-27.9,adult Overweight (BMI 25.0-29.9) Essential hypertension Mixed hyperlipidemia Coronary artery calcium CT scan with total score of 62.8 with LAD with 62.6 On 01/05/2025. Cholesterol 221, triglycerides 88, LDL 80, LDL 126 on 05/06/2024. Elevated fasting glucose (07/23/23) glucose 103 on 07/23/2023. Fasting glucose 112 with hemoglobin A1c 5.8 and GFR 82 on 05/06/2024. Osteoarthritis of right hip Osteoarthritis of left knee Leg pain, left Left ankle sprain Sprain of left ankle Arthritis of right sternoclavicular joint Benign paroxysmal positional vertigo of right ear Body mass index (bmi) 39.0-39.9, adult Other and unspecified hyperlipidemia Obesity (BMI 30-39.9) Paroxysmal atrial fibrillation TSH 2.08 on 05/06/2024. Surgical History Surgical History S/P ablation of atrial fibrillation History of arthroscopy of left knee Meniscectomy and synovectomy August 29, 2021 H/O partial thyroidectomy Family History Family History Mother Cerebrovascular accident Breast cancer Uterine cancer Father Heart disease Other Diabetes mellitus Family history of arthritis Social History Social History Smoking packs per day: 2 Smoking cigarettes per day: 40.0 Years smoked: 10 Smoking pack-years: 20.00 Smoking status: Former smoker Tobacco type: cigarettes Second hand tobacco smoke exposure: No Smoking end date: 07/02/04 Additional smoking assessment comments: 2 PPD X 10 YRS, THEN / PPD Alcohol intake: current Drinks per week: 12 Alcohol use details: wine, whiskey, beer Substance use: never Substance use type: does not use Current Housing: Decline to Answer Concerned About Future Housing: Decline to Answer Difficulty Paying Gas/Electric Bills: Decline to Answer Difficulty Paying for Meds: Decline to Answer Currently Unemployed: Decline to Answer Education: Decline to Answer Difficulty w/ Childcare or Family Care: Decline to Answer Living arrangements: with family Additional living arrangements comments: and 2.5 yo grandson (whom fostering) Occupation/Education: occupation Gender identity (if verbalized by the patient): Female Spiritual care concerns: No Medications Home Medications ?Medication ?Instructions ?Recorded ?Confirmed ?Type diltiazem HCl 240 mg 240 mg PO DAILY 06/07/2308/26 History capsule,extended release 24 hr escitalopram oxalate 10 mg tablet 10 mg PO DAILY #30 t abs 09/26/24 12/31/24 Rx (Lexapro) acetaminophen 500 mg capsule 1,000 mg (2 x 500 mg) PO Q6H PRN 12/21/24 12/31/24 Rx pain #30 caps lovastatin 10 mg tablet 10 mg PO DAILY #90 tabs 12/31 08/26 Rx azithromycin 250 mg tablet See Rx Instructions PO .COM PLEX #6 01/26/25 Rx tabs ibuprofen 600 mg tablet 600 mg PO TID PRN pain #90 t abs 04/23/25 Rx Sleep Procedure A full night polysomnogram using the [employer] multi-channel system recorded the standard physiologic parameters including EEG, EOG, submentalis EMG, anterior tibialis EMG, EKG, body position, nasal and oral airflow using nasal pressure sensor and thermistor. Respiratory parameters of chest and abdominal movements were recorded with Respiratory Inductance Plethysmography belts. Oxygen saturation was recorded by pulse oximetry. Video monitoring was also performed. Sleep stages, periodic limb movements, and EEG arousals were scored in 30 second epochs according to the criteria of the AASM Scoring Manual. The Apnea-Hypopnea Index was calculated using [facility] guidelines for definition of hypopnea while scoring respiratory events. The patient did not take a sleep aid at the beginning of the study. Sleep Architecture The total recording time was 432.8 minutes. The total sleep time was 207.5 minutes. Sleep latency was 110.4 minutes. REM latency was 167.0 minutes. Sleep efficiency was 47.9%. The patient had 49 awakenings for an awakening index of 14.2. Wake after sleep onset time was 114.5 minutes. The patient spent 43.5 minutes, 21.0% of total sleep time in Stage N1. The patient spent 131.0 minutes, 63.1% in Stage N2. The patient spent 23.0 minutes, 11.1% in Stage N3. The patient spent 10.0 minutes, 4.8% in Stage REM sleep. Respiratory Analysis The patient had 36 hypopneas, 10 obstructive apneas, 4 mixed apneas, and 4 central apneas for an overall Apnea Hypopnea Index of 15.6. The REM Apnea Hypopnea Index was 48.0. The NREM Apnea Hypopnea Index was 14.6. The patient had a Central Apnea Hypopnea Index of 1.2. There were no Respiratory Effort Related Arousals. The Respiratory Disturbance Index is 22.0 events per hour. There was no evidence of Abebe-Echavarria Respirations. Arousals There were 228 total arousals for an arousal index of 65.9. There were 54 spontaneous arousals for an index of 15.6. There were 56 arousals due to respiratory events for an index of 16.2. There were 88 arousals due to periodic limb movements for an index of 25.4. There were 24 arousals due to isolated limb movements for an index of 6.9. Periodic Limb Movements The patient had 47 isolated limb movements with an index of 13.6. The patient had 130 periodic limb movements with an index of 37.6. Patient had a total of 177 limb movements with a total limb movement index of 51.2. Oximetry Data The patient had an average oxygen saturation of 95.5% in sleep with a minimum oxygen saturation of 85% and a maximum oxygen saturation of 99%. The patient had 44 oxygen desaturations that were 4% or greater resulting in an Oxygen Desaturation Index of 12.7. The patient spent 0.8 minutes, 0.2% of total sleep time with an oxygen saturation below 88%. Snoring Profile Snoring was mild to moderate. Cardiac Profile The EKG showed normal sinus rhythm, average pulse rate of 72.3 bpm with a minimum pulse of rate of 64 bpm and a maximum pulse rate of 96 bpm. No arrhyt hmias noted. EEG Profile Unremarkable, no evidence of seizures. Assessment and Plan Assessment and Plan (1) Obstructive sleep apnea: Code(s): G47.33 - Obstructive sleep apnea (adult) (pediatric) Status: Acute Assessment and Plan: This basic nocturnal polysomnogram on 04/22/2025 shows moderate obstructive sleep apnea, the apnea-hypopnea index was 15.6 with desaturation to 85% and [id number]-[id number] snoring. She had very little REM, her REM apnea-hypopnea index was significantly higher average 36 events per hour. Her supine index was 57.6. She had a very long sleep latency 110 minutes and the sleep efficiency was low 47.9%. Due to the minimal amount of sleep and the lack of REM, this test likely underestimates the severity of her obstructive sleep apnea. Options for the patient include a full night PAP titration. Dr. Chavis may suggest other options that may benefit the patient. With moderate obstructive sleep apnea, she could be referred to a sleep dentist for an oral appliance. If the patient decides to have a full night CPAP titration, she should have a sleep aid available, to use if needed, to get to sleep and stay asleep. She was awake for almost 2 hours and had limited sleep after sleep onset. A full night of sleep with a sedative hypnotic such as Lunesta 2-3 mg may improve the qulaity of sleep to allow a quality titration. She reports 2 alcoholic beverages per day. One alcoholic beverage can take an hour to metabolize. Alcohol before bed can lead to rebound awakening. If she normally has 2 drinks before bed, I would recommend that she has her drinks before her titration, and have someone drop her off at the sleep lab instead of driving herself. . (2) PLMD (periodic limb movement disorder): Code(s): G47.61 - Periodic limb movement disorder Status: Acute Assessment and Plan: The [facility] with a periodic limb movement index of 37.6, the total limb movement index is 51.2 and the periodic limb movement arousal index is 25.4. Normal is fewer than [address] Milton Chavis documented in his office note that the patient had excessive limb movements during the night and raised the idea of limb movements fragmenting her sleep. This appears to be accurate. The patient completed a sleep questionnaire, answered that she never kicks during the night and rarely feels crawling or aching feelings in her legs. She has excessive limb movements with arousals in the setting of untreated obstructive sleep apnea. Treating sleep apnea is expected to improve the number of limb movements. Ferritin level is indicated to exclude iron deficiency anemia as a contributing factor. Ferritin should be 75 ng/mL or greater. If ferritin is below this, iron supplementation should be given to achieve ferritin of 75 ng/mL. There are nonpharmacologic methods to treat limb movements including daily exercise, stretching calf muscles before bed, avoiding excessive amounts of caffeine and alcohol, vitamin B supplementation, magnesium lotion massaged into legs before bed, and use of a weighted blanket. Pharmacologic therapy is very effective for restless legs syndrome and limb movements during sleep and may include [id number] voltage-gated calcium channel ligands such as gabapentin which is preferable to dopaminergic agents which can have augmentation. Data The data obtained during this sleep study is adequate for interpretation. Certification This sleep study has been reviewed by a board certified sleep medicine physician.
[2025-05-14 12:04] VITALS: BMI 26.4
== END 2025-04-23 06:19 | disposition home or self-care (01) ==
PROVIDERS: PCP Family Medicine; Visit Provider Otolaryngology
DX: G47.33 Obstructive sleep apnea (adult) (pediatric) (principal); G47.61 Periodic limb movement disorder
CPT/HCPCS: 95810

== ENCOUNTER 2025-04-22 09:53 | Outpatient (CLI) | payer MEDICARE, OTHER, SELFPAY ==
--- NOTE | ~2025-04-22 | US_ITS ---
US thyroid INDICATION: Multinodular goiter TECHNIQUE: Real-time sonographic images of the thyroid gland were obtained. COMPARISON: Comparison to multiple prior studies sequentially, with oldest reviewed study dated 06/08/2020. FINDINGS: The right thyroid lobe measures 5.4 x 2.3 x 2.4 cm. The left thyroid lobe measures 5.4 x 2.3 x 2.3 cm. There is normal echotexture and echogenicity throughout the thyroid gland. There are multiple bilateral thyroid masses. In the right thyroid lobe there is a heterogeneous 1.8 cm mass which is wider than tall, hypoechoic with ill-defined margins and microcalcifications, decreased in size compared with prior study, TR 4. The right lobe there is a 8 mm partially cystic mass which is decreased in size compared with prior examination, TR 4. In the left lobe there is a complex partially cystic hypoechoic mass which is wider than tall, smoothly marginated without echogenic foci measuring 3.9 cm, previously biopsy-proven benign. This is slightly larger than prior examination, likely related to technique. IMPRESSION: 1. No significant change compared with prior examination to bilateral multinodular goiter. Recommend follow-up ultrasound in 12 months. Reviewed, dictated and finalized at location O. IMPRESSION: 1. No significant change compared with prior examination to bilateral multinod ular goiter. Recommend follow-up ultrasound in 12 months.
== END 2025-04-22 09:54 | disposition home or self-care (01) ==
LOC: MICIMG 09:54
PROVIDERS: PCP Family Medicine; Visit Provider Otolaryngology
DX: E04.2 Nontoxic multinodular goiter (principal)
CPT/HCPCS: 76536